=== PATIENT | male | born 1975 | race Caucasian/White ===

== ENCOUNTER → 2020-01-14 | Outpatient (CLI) | payer SELFPAY ==
--- NOTE | 2020-01-14 10:12 | Diagnostic Imaging Report ---
PROCEDURE: MR imaging cervical spine without contrast. TECHNIQUE: Multiplanar, multisequence MR imaging of the cervical spine was performed without contrast. INDICATION: Neck pain. COMPARISON: None. FINDINGS: Normal alignment. Vertebral body heights are preserved. Normal bone marrow signal. No abnormal signal in the cervical spinal cord. The visualized paravertebral soft tissues are unremarkable. At C3-C4, an annular disc bulge results in vlnm-hp-[id number] spinal canal narrowing. This also results in severe right and moderate left neural foraminal narrowing. At C6-C7, a right foraminal disc protrusion results in moderate to severe left neural foraminal narrowing. The intervertebral discs are otherwise well-preserved. No other high-grade spinal canal or neural foraminal narrowing. IMPRESSION: 1. Spondylotic changes result in [id number] spinal canal narrowing at C3-C4. No abnormal signal in the cervical spinal cord. 2. High-grade neural foraminal narrowing bilaterally at C3-C4 and on the right at C6-C7. 3. No acute osseous or ligamentous findings. Dictated by: Dictated on workstation # [id number]
== END ==
LOC: RAD 09:03
PROVIDERS: ATTEND Physician Assistant
DX: M47.892 Other spondylosis, cervical region (principal)
CPT/HCPCS: 72141